=== PATIENT | male | born 1940 ===

== ENCOUNTER → 2017-01-19 | Outpatient (CLI) | payer SELFPAY | END | disposition disaster alternative care site (69) | LOC: GAMB 20:29 | DX: R06.00 Dyspnea, unspecified (principal); J44.9 Chronic obstructive pulmonary disease, unspecified; M54.9 Dorsalgia, unspecified; I48.2 Chronic atrial fibrillation; R06.02 Shortness of breath; R09.89 Other specified symptoms and signs involving the circulatory and respiratory systems; R60.0 Localized edema; Z79.891 Long term (current) use of opiate analgesic; Z79.82 Long term (current) use of aspirin; Z79.899 Other long term (current) drug therapy; Z88.0 Allergy status to penicillin | CPT/HCPCS: A0422; A0425; A0426; J2270 ==